=== PATIENT | male | born 1950 | race Caucasian/White ===

== ENCOUNTER → 2017-09-06 | Outpatient (CLI) | payer MEDICARE, MEDICAID ==
[~2017-09-06] MED LIST: AMOXICILLIN500 M1 PO; NOHOMEMEDICATIONS; NORCO 5-325 TA1 EACH PO
== END ==
LOC: M.RAD 09:31 → M.ULTRA 10:30
DX: M41.86 Other forms of scoliosis, lumbar region (principal); N43.3 Hydrocele, unspecified; M48.061 Spinal stenosis, lumbar region without neurogenic claudication

== ENCOUNTER 2019-12-23 11:01 | Inpatient (IN) | payer MEDICARE, MEDICAID ==
[~2019-12-23] VITALS: Ht 170.2 cm; Wt 73.9 kg
[2019-12-23 11:01] VITALS: BP 174/87
[2019-12-23] MEDS ORDERED: PRINIVIL20 M1 PO (11:05)
[2019-12-23] MEDS ORDERED: PERCOCET 7.5-31 EAC1 PO (11:05)
[2019-12-23] MEDS ORDERED: LIPITOR40 MG PO (11:05)
[2019-12-23 13:01] LABS: ABSOLUTE BASOPHILS 0.1 thou/uL (0.0-0.2); ABSOLUTE EOSINOPHILS 0.2 thou/uL (0.0-0.7); ABSOLUTE LYMPHOCYTES 2.6 thou/uL (0.8-5.3); ABSOLUTE NEUTROPHILS 6.2 thou/uL (1.6-8.1); HEMATOCRIT 42.9 % (42.0-52.0); LYMPHOCYTES 25.9 %; MCH 33.1 pg (26.0-34.0); MCHC 34.9 g/dL (28.0-37.0); MCV 94.8 fL (80.0-100.0); MONOCYTES 10.2 %; MPV 6.9 fl. (7.2-11.1); NUCLEATED RBCS 0 /100WBC; PLATELET COUNT* 261 thou/uL (150-400); POLYS 60.9 %; RBC 4.52 mil/uL (4.50-6.00); RDW-CV 13.1 % (10.5-14.5); WBC 10.1 thou/uL (4.0-11.0)
[2019-12-23 13:03] LABS: CALCIUM 9.2 mg/dL (8.5-10.1); CREATININE 0.9 mg/dL (0.6-1.3); POTASSIUM 4.4 mmol/L (3.5-5.1)
[2019-12-23 13:07] LABS: ALBUMIN 3.7 g/dL (3.4-5.0); TOTAL BILIRUBIN 0.4 mg/dL (<0.1-1.0); TOTAL PROTEIN 7.4 g/dL (6.4-8.2)
[2019-12-23 14:58] LABS: URINE BILIRUBIN NEGATIVE (Negative); URINE BLOOD TRACE (Negative); URINE CLARITY CLEAR; URINE COLOR YELLOW; URINE GLUCOSE-RANDOM NEGATIVE (Negative); URINE KETONES NEGATIVE (Negative); URINE LEUKOCYTES-REFLEX NEGATIVE (Negative); URINE NITRITE-REFLEX NEGATIVE (Negative); URINE PROTEIN NEGATIVE (Negative); URINE SPECIFIC GRAVITY 1.015 (1.005-1.030); URINE UROBILINOGEN 0.2 E.U./dl (0.2-1.0)
[2019-12-23 20:00] VITALS: BP 159/86
[2019-12-23 20:38] VITALS: BP 150/76
[2019-12-23 21:51] LABS: ALBUMIN 3.4 g/dL (3.4-5.0); CALCIUM 8.7 mg/dL (8.5-10.1); POTASSIUM 3.9 mmol/L (3.5-5.1); TOTAL BILIRUBIN 0.5 mg/dL (<0.1-1.0)
[2019-12-24 00:31] VITALS: BP 103/63
[2019-12-24 04:12] VITALS: BP 125/68
--- NOTE | 2019-12-24 05:31 | NUR ---
PT ADMITTED TO FLOOR AT 1999. ASSESSMENTS COMPLETED AT BEDSIDE, PLEASE REFER TO CHARTING FOR DETAILS. MEDICATIONS ADMINISTERED PER AUG. PT REMAINS ON FALL PERCAUTIONS WITH BED ALARM IN USE. HOURLY ROUNDING COMPLETED FOR SAFETY. NO CONCERNS VOICED BY PT AT THIS TIME, CURRENTLY RESTING IN BED WITH CALL LIGHT WITHIN REACH.
[2019-12-24 06:03] LABS: ABSOLUTE BASOPHILS 0.1 thou/uL (0.0-0.2); ABSOLUTE EOSINOPHILS 0.2 thou/uL (0.0-0.7); ABSOLUTE LYMPHOCYTES 3.7 thou/uL (0.8-5.3); ABSOLUTE NEUTROPHILS 5.2 thou/uL (1.6-8.1); BASOPHILS 0.6 %; EOSINOPHILS 2.3 %; HEMATOCRIT 40.3 % (42.0-52.0); HEMOGLOBIN 14.2 gm/dL (14.0-18.0); LYMPHOCYTES 36.5 %; MCH 33.3 pg (26.0-34.0); MCHC 35.2 g/dL (28.0-37.0); MCV 94.6 fL (80.0-100.0); MONOCYTES 10.1 %; MPV 6.3 fl. (7.2-11.1); NUCLEATED RBCS 0 /100WBC; PLATELET COUNT* 250 thou/uL (150-400); POLYS 50.5 %; RBC 4.26 mil/uL (4.50-6.00); RDW-CV 13.2 % (10.5-14.5); WBC 10.2 thou/uL (4.0-11.0)
[2019-12-24 06:16] LABS: CHOLESTEROL 127 mg/dL (<200); HDL CHOLESTEROL 45 mg/dL (>40); LDL CHOLESTEROL 42 mg/dL (<100); TC:HDL 2.8 Ratio (Not establshd); TRIGLYCERIDE 200 mg/dL (<150); VLDL 40 mg/dL (<40)
[2019-12-24 06:18] LABS: SERUM ASSESSMENT Clear
[2019-12-24 06:23] LABS: CALCIUM 8.8 mg/dL (8.5-10.1); CREATININE 0.9 mg/dL (0.6-1.3); POTASSIUM 4.1 mmol/L (3.5-5.1)
[2019-12-24 07:48] VITALS: BP 146/74
--- NOTE | 2019-12-24 08:37 | NUR ---
ASSUMED CARE OF PT THIS AM AROUND 0715- AGRICULTURAL CHEMIST IN PLACE ORDERED, TRACING SB- UPON ASSESSMENT PT NOTED TO BE RESTING IN BED, WATCHING TV- PT A&O X4- CONT OF BOWEL AND BLADDER- EXT ASSIST X1 WITH TRANSFERS- DIMINISHED LUNG SOUNDS NOTED, RESP EVEN AND UN-LABORED- VSS, 02 SAT 96% ON RA- ABD SOFT/ROUND/NON-TENDER, BS X4 QUADS- LAST BM REPORTED 12/23/19- IV NOTED TO LEFT HAND INTACT, IVF INFUSSING PRESCRIBE- PRN PERCOCEET GIVEN THIS AM AT 0814 R/T C/O BACK PAIN- CALL LIGHT AND PERSONAL BELONGINGS WITH IN REACH- PT MAKES NEEDS KNOWN- ALL NEEDS MET AT THIS TIME-WCTM
[2019-12-24 12:08] VITALS: BP 123/59
[2019-12-24 16:00] VITALS: BP 137/64
[2019-12-24 20:00] VITALS: BP 123/70
[2019-12-25] VITALS: BP 144/68
[2019-12-25 02:06] LABS: GLYCOHEMOGLOBIN (HGB A1C) 5.6 % (4.8-5.6)
[2019-12-25 03:59] VITALS: BP 134/67
--- NOTE | 2019-12-25 06:02 | NUR ---
PATIENT PARTIALLY PROGRESSING TOWARDS GOALS: PATIENT CONTINUES TO REPORT DIZZINESS DESPITE MEDICATION PER MAR. RE-INSTRUCTED PATIENT ON FALL PRECAUTIONS AND MOVING SLOWLY. PATIENT VERBALIZES UNDERSTANDING. CALL LIGHT WITHIN REACH
[2019-12-25 08:00] VITALS: BP 133/82
--- NOTE | 2019-12-25 11:11 | EKG ---
[place] [address] ELECTROCARDIOGRAM REPORT Name: TARUN AMADO Room: [address]R.#: [id number] Admission: 12/23/19 Attend Phys: Edgar Martin, Discharge: Date of : 54 Date of Service: 12/23/19 1108 Report #: [id number] THIS REPORT FOR: //name// [facility] ED Test Date: 2019-12-23 Test Time: 11:08:47 Pat Name: TARUN AMADO Department: Room: [address] Gender: M Edge Blacker: FRANCIS : 1950 Requested By: Edgar Martin Order Number: [id number] Nikolas MD: Willam Pascal Measurements Intervals [place] Rate: 68 P: 51 MA: 158 QRS: 42 QRSD: 105 T: 17 QT: 427 QTc: 455 Interpretive Statements Sinus rhythm No previous ECG available for comparison Electronically Signed On 12-25-2019 11:10:23 CDT by Willam Pascal [email or web address] <ELECTRONICALLY SIGNED> By: Willam Pascal MD, [facility] 12/25/19 1110 07 Willam Pascal MD, [facility] /EPI
--- NOTE | 2019-12-25 12:00 | NUR ---
Pt is A&O. Resides at home alone. Normally active and independent. No DME. No hx of HH or SNF. Supportive kids. Goal is home at dc, CM to follow up closer to dc to see if Pt will need HH, Pt is open to HH if needed at dc. Following.
[2019-12-25 12:17] VITALS: BP 139/75
[2019-12-25] MEDS ORDERED: TRANSDERM-SCOP1 EACH TRANSDERM ×2 (12:31)
[2019-12-25] MEDS ORDERED: MECLIZINE HCL25 M1 PO ×2 (12:32)
[2019-12-25] MEDS ORDERED: MEDROLDOSEPACK PO ×2 (12:37)
[2019-12-25 16:08] VITALS: BP 145/78
--- NOTE | 2019-12-25 18:10 | NUR ---
PT HAS RESTED T/O DAY. C/O PAIN TO BACK AND REMAINS DIZZY. PT POSSIBLY TO DC TOMORROW. SB WITH 1ST DEGREE. PT SBA. NO FURTHER REQUESTS. CLWR.WCTM
[2019-12-25 19:50] VITALS: BP 154/69
[2019-12-26] VITALS (7 sets, daily range): BP systolic 102–172; BP diastolic 72–90
--- NOTE | 2019-12-26 05:09 | NUR ---
PATIENT NOT PROGRESSING TOWARDS GOALS: PATIENT CONTINUES TO REPORT DIZZINESS DESPITE MEDICATION PER MAR AND SLOW MOVEMENTS. PATIENT RE-INSTRUCTED ON FALL PRECAUTIONS, HOWEVER, PATIENT REFUSING BED ALARM TO BE SET. CALL LIGHT WITHIN REACH
--- NOTE | 2019-12-26 08:26 | NUR ---
ASSUMED CARE OF PT THIS AM AROUND 07- DIGITAL CARTOGRAPHIC TECHNICIAN IN PLACE ORDERED, TRACING SR- UPON ASSESSMENT PT NOTED TO BE RESTING IN BED, WATCHING TV- PT A&O X4- CONT OF BOWEL AND BLADDER- SBA WITH TRANSFERS FOR SAFETY- PT STILL C/O DIZZINESS, SCIPALAMINE PATCH IN PLACE TO LEFT EAR INDICATED- LCTA, DIMINISHED IN BASES- VSS, O2 SAT 97% ON RA- ABD SOFT/ROUND/NON-TENDER, BS X4 QUADS- LAST BM REPORTED X2 DAYS AGO- IV NOTED TO LEFT HAND INTACT AND SL- PT REPORTS PAIN 8/10 TO BACK, PRN PERCOCET GIVEN THIS AM- CALL LIGHT AND PERSONAL BELONGINGS WITH IN REACH- HOURLY ROUNDS IN PLACE R/T SAFETY/NEEDS- ALL NEEDS MET AT THIS TIME-WCTM
[2019-12-26] MEDS ORDERED: BACLOFEN 10MG T10 MG PO (09:01)
[2019-12-27 00:38] VITALS: BP 156/83
[2019-12-27 04:26] VITALS: BP 150/86
[2019-12-27 07:32] VITALS: BP 161/88
--- NOTE | 2019-12-27 08:07 | NUR ---
ASSUMED CARE OF PT THIS AM AROUND 0715- LOG INSPECTOR IN PLACE ORDERED, TRACING SB- UPON ASSESSMENT PT NOTED TO BE RESTING IN BED- PT A&O X4- CONT OF B/B- ASSIST X1 WITH RW FOR TRANSFERS- PT HERE TO WORK WITH PT THIS AM, AMBULATING IN HALLWAY WITH RW- LCTA, DIMINISHED IN BASES- VSS, O2 SAT 97% ON RA- ABD SOFT/ROUND/NON-TENDER, BS X4 QUADS- LAST BM REPORTED X3 DAYS AGO- IV NOTED TO LEFT HAND INTACT AND SL- PT REPORTS PAIN 8/10 TO BACK THIS AM, PRN PERCOCET THIS AM- CALL LIGHT AND PERSONAL BELONGINGS WITH IN REACH- ALL NEEDS MET AT THIS TIME-WCTM
[2019-12-27 12:42] VITALS: BP 153/76
[2019-12-27 16:48] VITALS: BP 141/71
--- NOTE | 2019-12-27 16:55 | NUR ---
Pt accepted to inpt rehab unit and will dc to inpt rehab unit tomorrow.
[2019-12-27 20:00] VITALS: BP 147/87
[2019-12-28] VITALS: BP 155/96
[2019-12-28 04:00] VITALS: BP 139/79
[2019-12-28 08:00] VITALS: BP 193/105
--- NOTE | 2019-12-28 10:18 | NUR ---
ASSUMED CARE OF PATIENT THIS AM AT 0730. PATIENT IS ALERT AND ORIENTED X 4. HE DENIES PAIN THIS AM. PATIENT IS UP IN THE ROOM. PLANS TO TRANSFER TO REHAB TODAY. PATIENT'S BP WAS ELEVATED THIS AM, DR RENTERIA NOTIFIED. PATIENT GIVEN PRN HYDRALAZINE X 1 IV. WILL CONTINUE TO MONITOR BP PRIOR TO TRANSFER.
[2019-12-28 10:37] VITALS: BP 102/82
--- NOTE | 2019-12-28 12:00 | NUR ---
Pt remained on tele one more night; pt to dc to inpt rehab unit today.
[2019-12-28 12:25] VITALS: BP 168/106
== END 2019-12-28 12:32 | DRG 57 ==
LOC: M.ERS 11:01 → M.TBA-ER 14:23 → M.2W 14:23
PROVIDERS: Personal Emergency Response Attendant; ADMIT Internal Medicine; ATTEND Internal Medicine
DX: G31.2 Degeneration of nervous system due to alcohol (principal); E87.1 Hypo-osmolality and hyponatremia; F17.210 Nicotine dependence, cigarettes, uncomplicated; G93.89 Other specified disorders of brain; H81.8X9 Other disorders of vestibular function, unspecified ear; D75.9 Disease of blood and blood-forming organs, unspecified; F10.20 Alcohol dependence, uncomplicated; G62.1 Alcoholic polyneuropathy; M47.812 Spondylosis without myelopathy or radiculopathy, cervical region; M48.00 Spinal stenosis, site unspecified; I10 Essential (primary) hypertension; E78.5 Hyperlipidemia, unspecified; Z79.899 Other long term (current) drug therapy

== ENCOUNTER 2019-12-27 15:51 | Inpatient (IN) | payer MEDICARE, MEDICAID ==
[~2019-12-27] VITALS: Ht 170.2 cm; Wt 72.1 kg
[~2019-12-27 15:51] MED LIST changes: +BACLOFEN 10MG T10 MG PO; +LIPITOR40 MG PO; +MECLIZINE HCL25 M1 PO; +MEDROLDOSEPACK PO; +PERCOCET 7.5-31 EAC1 PO; +PRINIVIL20 M1 PO; +TRANSDERM-SCOP1 EACH TRANSDERM
[2019-12-28 13:35] VITALS: BP 162/95
--- NOTE | 2019-12-28 15:54 | NUR ---
1230 PATIENT ARRIVED TO ROOM 321 VIA W/C FROM ROOM 224, REPORT REC'D FROM DEANNE. PATIENT STATES HE CAME INTO THE ER ON Wednesday12/23/19 AFTER EXPERIENCING EXTREME DIZZINESS SITTING AT THE TABLE DRINKING HIS COFFEE, STATES LYING DOWN DID HELP ALLEVIATE IT A BIT AND THAT HE HAS NEVER EXPERIENCED IT BEFORE. 7 WEEKS AGO PATIENT HAD ALL OF HIS TEETH REMOVED....STATES HE ONLY HAD 6 LEFT BECAUSE HE HAD ALREADY PULLED THE OTHERS WITH HIS HANDS AND PLIERS. DAUGHTER DANIELLE AT THE BEDSIDE AND PROVIDES SUPPORT FOR HER DAD. STATES HIS PAIN IN HIS BACK IS AT AN 8 AND IS A CONSTANT ACHING FROM ARTHRITIS. OXYCODONE 7.5 1 TAB GIVEN AT 1550 AND ASSISTED PATIENT INTO BED. DR. MANTILLA IN EARLIER TO SEE PATIENT AND VERIFIED ORDERS.
--- NOTE | 2019-12-28 18:37 | NUR ---
1710 LISINOPRIL 20MG (HOME MED) STARTED ...BP 160/100 1830 BP LYING 101/68 HR 66...SITTING 130/83 HR 67....STANDING 138/78 HR 76. PATIENT AMBULATED TO THE BR WITHOUT ANY DIFFICULTY OR C/O DIZZINESS. DID C/O SOME MILD LIGHTHEADEDNESS.
[2019-12-28 20:00] VITALS: BP 118/61
[2019-12-29 04:53] LABS: HEMATOCRIT 41.3 % (42.0-52.0); HEMOGLOBIN 14.2 gm/dL (14.0-18.0); MCH 32.5 pg (26.0-34.0); MCHC 34.4 g/dL (28.0-37.0); MCV 94.6 fL (80.0-100.0); MPV 6.5 fl. (7.2-11.1); RBC 4.36 mil/uL (4.50-6.00); RDW-CV 13.3 % (10.5-14.5); WBC 11.4 thou/uL (4.0-11.0)
[2019-12-29 04:57] LABS: CALCIUM 8.1 mg/dL (8.5-10.1); CREATININE 1.1 mg/dL (0.6-1.3); POTASSIUM 3.9 mmol/L (3.5-5.1)
--- NOTE | 2019-12-29 06:13 | NUR ---
ASSUMED CARES AT 1920. ALERT AND ORIENTED. PLEASANT. MIN ASSIST WITH GAIT BELT AND WALKER. UP TO BR. SLEPT WELL. CALL LIGHT IN REACH AND BED ALARM ON.
[2019-12-29 08:00] VITALS: BP 143/86
--- NOTE | 2019-12-29 13:41 | NUR ---
Nutrition: Pt admitted with dizziness. Has dental infection. Ground diet ordered. Wt: 169#. Albumin 3.4. PMHx, meds noted. Low nutrition risk.
--- NOTE | 2019-12-29 15:51 | NUR ---
ALERT AND ORIENTED X4. UP WITH STAND BY ASSIST, GAIT BELT AND WALKER. PAIN MEDICATION GIVEN FOR C/O BACK PAIN WITH A SOME RELIEF. STILL C/O SOME DIZZINESS. WEARING SCOPOLOMINE PATCH. NO TEETH ON GROUND DIET. WEARING NICOTINE PATCH. USES CALL LIGHT WITHIN REACH. FALL PRECAUTIONS IN PLACE. BED ALARM AND CHAIR ALARM USED.
--- NOTE | 2019-12-29 17:01 | NUR ---
Pt admitted to in rehab unit 12/27. Pt lives in an apt home alone. Pt has a grab bar. SW to follow up with pt and pt contact as needed to assist with safe dc planning.
[2019-12-29 19:45] VITALS: BP 148/79
--- NOTE | 2019-12-30 05:16 | NUR ---
ASSUMED CARES AT 1920. ALERT AND ORIENTED. PLEASANT. C/O BACK PAIN. PERCOCET GIVEN. DOES HAVE SLIGHT DIZZINESS, MORE SO WHEN UP. SBA WITH GAIT BELT AND WALKER. UP TO BATHROOM. SLEPT MOST OF THE NIGHT. CALL LIGHT IN REACH AND BED ALARM ON.
[2019-12-30 08:00] VITALS: BP 163/73
--- NOTE | 2019-12-30 18:23 | NUR ---
ASSESSMENT COMPLETED DOCUMENTED THIS MORNING. STATES "I AM GOING TO GET OUT OF HERE ON WEDNESDAY NO MATTER WHAT, YOU ALL ARE DOING A GREAT JOB BUT I NEED OUT AND I THINK I AM GOING TO GET IN TO SEE AN EAR, NOSE AND THROAT DOCTOR FOR THIS DIZZINESS." AMBULATING WITH FWW AND SBA TO BR AND DEMONSTRATES A STEADY GAIT PATTERN. OXY 1 TAB GIVEN THIS MORNING WITH RELIEF STATED.
[2019-12-30 19:40] VITALS: BP 134/78
[2019-12-30 19:45] VITALS: BP 145/61
--- NOTE | 2019-12-31 04:59 | NUR ---
PATIENT SLEPT WELL DURING THIS SHIFT. PT USES CALL LIGHT APPROPRIATELY FOR ASSISTANCE TO BATHROOM. PT UP WITH G.BELT AND WALKER AND STANDBY. PT ABLE TO TAKE CARE OF ALL BATHROOM NEEDS. PT GIVEN PAIN MEDICATION AT HS. PT DENIES NEEDS AT THIS TIME. FREQUENTLY USED ITEMS AND CALL LIGHT WITHIN REACH. SIDERAILS UPX2 AND BED ALARM ON. WILL CONTINUE TO MONITOR.
[2019-12-31 08:00] VITALS: BP 133/108
[2019-12-31 09:57] VITALS: BP 133/108
--- NOTE | 2019-12-31 11:37 | NUR ---
ASSESSMENT COMPLETED DOCUMENTED THIS MORNING. PATIENT ADAMANTLY STATES, "I AM GOING TO GO HOME TODAY, I WILL MAKE IT HAPPEN SOMEHOW, I CAN'T TAKE THIS LYING AROUND ANYMORE...YOU ALL HAVE BEEN GREAT I JUST NEED TO BE UP AND DOING SOMETHING, DO YOU UNDERSTAND?" PATIENT STATED YESTERDAY THAT HE WANTED DC ON WEDNESDAY BUT TODAY IS STATING HE WANTS TO GO HOME TODAY, ANXIOUS AND A BIT IRRITABLE. INSTRUCTED PATIENT THAT [facility] WOULD BE CALLED AND DC COULD BE ARRANGED TODAY....WAS GRATEFUL AND CALMER. AL[employer] DEL [employer] WITH [facility] CALLED AT 0820 AND INFORMED OF SITUATION....STATED HE WAS IN HOUSE AND WOULD BE UP. DR MANTILLA CALLED IMMEDIATELY AFTER ALMA DEL [employer]O NP AND INFORMED OF SITUATION, TELEPHONE ORDER REC'D OKAY TO DC HOME TODAY. 0850 [employer] ON FLOOR, RECONCILED DC MEDS AND CALLED IN PRESCRIPTIONS FOR PATIENT. 1020 DC INSTRUCTIONS GIVEN TO PATIENT AND REVIEWED...MEDICATION EDUCATION SHEETS GIVEN AND INSTRUCTED ON ALL NEW MEDICATIONS, PATIENT VERBALIZED UNDERSTANDING AND SIGNATURE OBTAINED. 1115 PATIENT DCD VIA W/C WITH NURSING AND ALL BELONGINGS. PATIENT INDEP IN ROOM, DRESSED SELF AND PACKED ALL OF HIS OWN BELONGINGS. TRANSFERRED TO FAMILY CAR ACCOMPANIED BY DTR IN GOOD CONDITION.
[2019-12-31 11:52] VITALS: BP 133/108
== END 2019-12-31 11:15 | disposition home or self-care (01) | DRG 57 ==
LOC: M.REH 15:51
PROVIDERS: ADMIT Physical Medicine & Rehabilitation; ATTEND Physical Medicine & Rehabilitation
DX: G31.2 Degeneration of nervous system due to alcohol (principal); I10 Essential (primary) hypertension; G62.1 Alcoholic polyneuropathy; H81.8X9 Other disorders of vestibular function, unspecified ear; E78.5 Hyperlipidemia, unspecified; I71.4 Abdominal aortic aneurysm, without rupture; F17.210 Nicotine dependence, cigarettes, uncomplicated; Z71.6 Tobacco abuse counseling